=== PATIENT | male | born 1990 | race Caucasian/White ===

== ENCOUNTER 2018-08-24 23:33 | Emergency (ER) | payer OTHER ==
[~2018-08-24] VITALS: Ht 182.9 cm; Wt 54.5 kg
[~2018-08-24 23:33] MED LIST: ALBU8.5H3 IH
[2018-08-24 23:39] VITALS: BP 125/68
== END 2018-08-25 01:00 | disposition left against medical advice (07) ==
LOC: EMS 23:35
DX: H57.12 Ocular pain, left eye (principal); Z53.21 Procedure and treatment not carried out due to patient leaving prior to being seen by health care provider